=== PATIENT | male | born 1975 | race Caucasian/White ===

== ENCOUNTER → 2022-11-28 | Outpatient (CLI) | payer BC ==
[2022-11-28 20:39] LABS: ALT 70 U/L (10-49); AST 26 U/L (14-35); African American GFR (CKD) 92.2 (60.0-200.0); Albumin 4.8 g/dL (3.8-4.9); Alkaline Phosphatase 52 U/L (41-126); BUN/Creat Ratio 13.73 Ratio (12.00-20.00); Blood Urea Nitrogen 15.1 mg/dL (9.0-27.0); Calcium 9.9 mg/dL (8.7-10.3); Carbon Dioxide 26.9 mmol/L (20.0-27.5); Chloride 103 mmol/L (96-109); Chol/HDL Ratio 7.17 Ratio; Globulin 2.4 g/dL (1.6-3.3); Glucose 97 mg/dL (70-110); LDL Cholesterol,Calculated 168.2 mg/dL (0.0-131.0); Non-African American GFR(CKD) 79.5 (60.0-200.0); Potassium 5.3 mmol/L (3.5-5.5); Sodium 140 mmol/L (135-145); Total Protein 7.2 g/dL (6.2-8.2)
== END | disposition home or self-care (01) ==
LOC: LABWHC1 08:25
DX: Z00.00 Encounter for general adult medical examination without abnormal findings (principal); M54.50 Low back pain, unspecified
CPT/HCPCS: 36415; 80053; 80061; 83036; 84403; 84443

== ENCOUNTER 2024-05-25 08:03 | Day surgery (SDC) | payer BC ==
[~2024-05-25 08:03] MED LIST: LIDOCAINE 1% (10MG/ML) FOR IV START INTRADERMA PRN; ONDANSETRON 4 MG/2 ML VIAL IVP PRN
[2024-05-25 09:03] VITALS: RESP 16; TEMP 96.9
[2024-05-25] MEDS: LACTATED RINGERS 1,000 ML IV SCH (09:07)
[2024-05-25] MEDS: IV FLUID CONTINUATION 1,000 ML IV ONE (09:23)
[2024-05-25] MEDS ORDERED: PROPOFOL 10 MG/ML 20 ML VIAL IV ONE (09:25)
--- NOTE | 2024-05-25 09:28 | P.GSHP ---
History of Present Illness H&P Date: 05/25/24 Chief Complaint: Colon cancer screening 49-year-old male here for colonoscopy. He has not had 1 previously. No bowel complaints. No family history of colon cancer. Past Medical History Past Medical History: No Reported History History of Any Multi-Drug Resistant Organisms: None Reported Past Surgical History: Orthopedic Surgery Additional Past Surgical History / Comment(s): labral tear rt shoulder Past Anesthesia/Blood Transfusion Reactions: No Reported Reaction Smoking Status: Former smoker - Past Family History Father Family Medical History: No Reported History Medications and Allergies Home Medications Medication Instructions Recorded Confirmed Type Elderberry (Unk) 1 tab PO DAILY 05/20/24 05/20/24 History Vit C(Unk) 1 tab PO DAILY 05/20/24 05/20/24 History Allergies Allergy/AdvReac Type Severity Reaction Status Date / Time No Known Allergies Allergy Verified 05/25/24 08:56 Surgical - Exam Vital Signs Temp Pulse Resp BP Pulse Ox 96.9 F L 87 16 139/76 96 05/25/24 09:02 05/25/24 09:02 05/25/24 09:02 05/25/24 09:02 05/25/24 09:02 Physical exam: General: Well-developed, well-nourished HEENT: Normocephalic, sclerae nonicteric Abdomen: Nontender, nondistended Extremities: No edema Neuro: Alert and oriented Assessment and Plan (1) Colon cancer screening Narrative/Plan: 49-year-old male here for colonoscopy. Will proceed with colonoscopy at this time. Current Visit: Yes Status: Acute Code(s): Z12.11 - ENCOUNTER FOR SCREENING FOR MALIGNANT NEOPLASM OF COLON SNOMED Code(s): 371947873
--- NOTE | 2024-05-25 09:38 | P.PCN ---
Date of Procedure: 05/25/24 Procedure(s) Performed: PREOPERATIVE DIAGNOSIS: Colon cancer screening POSTOPERATIVE DIAGNOSIS: Normal exam PROCEDURE: Colonoscopy ANESTHESIA: MAC SURGEON: Brent Reyes M.D. SPECIMENS: None ENDOSCOPIC PROCEDURE: The patient was placed on the endoscopy table in the left decubitus position. The Olympus colonoscope was inserted into the anus and passed under direct visualization to the base of the cecum. The appendiceal orifice was visualized. From that point the scope was slowly withdrawn inspecti ng all surfaces carefully. There were no neoplastic inflammatory or polypoid lesions throughout the cecum, ascending, transverse, descending, sigmoid and rectum. There was no visible diverticulosis noted. Digital rectal examination was normal. The patient was taken to the recovery room in stable condition per anesthesia guidelines. RECOMMENDATIONS: Resume diet. Repeat colonoscopy 10 years.
[2024-05-25 10:03] VITALS: BP 119/77; PULSE 70
== END 2024-05-25 10:30 | disposition home or self-care (01) ==
LOC: ORWHC2ENDO 08:03
PROVIDERS: ATTEND Surgery